=== PATIENT | female | born 1945 | race Caucasian/White ===

== ENCOUNTER → 2017-10-27 | Outpatient (CLI) | payer OTHER ==
[~2017-10-27] MED LIST: ALBU1SYP PO; ALPR0.254 PO; AMIT100T2 PO; BENA5TAB5 PO; DICL1GEL26 TD; DICL1GEL26 TOP; FLUT0.05 NAS; FOLI1TAB6 PO; GABA300C10 PO; HYDR-3682 PO; HYDR-4683 PO; LEUC5TAB PO; MET50T GT; NITR0.2D12 TD; NITR0.4S29 SL; OMEP20CA74 PO; PRE5T GT; RANI-226 PO; SIMV-13 PO; TRIA0.1P11 TOP; TRIA0.25 PO; TRIAPOW6 XX
[2017-10-27 10:31] LABS: Basophils # (auto) 0.1 uL; Basophils % (auto) 0.6 % (0.0-2.0); Eosinophils # (auto) 0.1 uL; Eosinophils % (auto) 0.8 % (0.0-7.0); Hematocrit 36.1 % (36.0-46.0); Hemoglobin 12.4 g/dL (12.2-16.2); Lymphocytes # (auto) 1.6 uL; Lymphocytes % (auto) 20.2 % (10.0-50.0); Mean Corpuscular Hgb Conc. 34.3 g/dL (32.0-36.0); Mean Corpuscular Volume 90.4 fL (80.0-100.0); Monocytes # (auto) 0.4 uL; Monocytes % (auto) 4.6 % (0.0-12.0); Neutrophils # (auto) 5.8 uL; Neutrophils % (auto) 73.8 % (37.0-80.0); Platelet Count (auto) 182 10^3/uL (140-450); Red Cell Distribution Width 17.7 % (11.8-14.3); White Blood Cell 7.9 10^3/uL (4.4-10.8)
[2017-10-27 11:07] LABS: Calcium 8.8 mg/dL (8.5-10.1); Potassium 4.8 mmol/L (3.5-5.1)
[2017-10-27 11:10] LABS: Albumin 3.6 g/dL (3.4-5.0); BUN/Creatinine Ratio 12.2
[2017-10-27 11:13] LABS: Bilirubin, Total 0.3 mg/dL (0.2-1.0); Total Protein 6.8 g/dL (6.4-8.2)
== END | disposition home or self-care (01) ==
LOC: LAB 10:04
PROVIDERS: ATTEND Nurse Practitioner
DX: M06.9 Rheumatoid arthritis, unspecified (principal); I50.9 Heart failure, unspecified
CPT/HCPCS: 36415; 80053; 85025

== ENCOUNTER → 2018-05-16 | Outpatient (CLI) | payer OTHER ==
[2018-05-16 10:03] LABS: Urine Bacteria NONE SEEN /hpf (None Seen); Urine Blood Negative /uL (Negative); Urine Specific Gravity 1.015 (1.001-1.035); Urine WBC 35 /hpf (0 - 5)
[2018-05-16 10:04] LABS: Basophils # (auto) 0.1 uL; Basophils % (auto) 0.7 % (0.0-2.0); Eosinophils # (auto) 0.5 uL; Eosinophils % (auto) 5.6 % (0.0-7.0); Hematocrit 37.4 % (36.0-46.0); Hemoglobin 12.4 g/dL (12.2-16.2); Lymphocytes # (auto) 2.6 uL; Lymphocytes % (auto) 31.2 % (10.0-50.0); Mean Corpuscular Hemoglobin 29.8 pg (28.0-32.0); Mean Corpuscular Hgb Conc. 33.2 g/dL (32.0-36.0); Mean Corpuscular Volume 89.6 fL (80.0-100.0); Monocytes # (auto) 0.6 uL; Monocytes % (auto) 6.8 % (0.0-12.0); Neutrophils # (auto) 4.7 uL; Neutrophils % (auto) 55.7 % (37.0-80.0); Platelet Count (auto) 200 10^3/uL (140-450); Red Blood Cells 4.17 10^6/uL (4.0-5.20); Red Cell Distribution Width 15.9 % (11.8-14.3); White Blood Cell 8.4 10^3/uL (4.4-10.8)
[2018-05-16 10:28] LABS: Calcium 9.2 mg/dL (8.5-10.1); Potassium 4.2 mmol/L (3.5-5.1)
[2018-05-16 10:35] LABS: Albumin 3.4 g/dL (3.4-5.0); BUN/Creatinine Ratio 21.1; Bilirubin, Total 0.3 mg/dL (0.2-1.0); Total Protein 7.6 g/dL (6.4-8.2)
[2018-05-16 14:06] LABS: Free T3 3.21 pg/mL (2.3-4.2); Free T4 (Free Thyroxine) 0.89 ng/dL (0.89-1.76)
[2018-05-16 14:07] LABS: Folate (Folic Acid) 16.22 ng/mL (5.38-24)
== END | disposition home or self-care (01) ==
LOC: LAB 09:10
PROVIDERS: ATTEND Nurse Practitioner
DX: E78.5 Hyperlipidemia, unspecified (principal)
CPT/HCPCS: 36415; 80053; 80061; 81001; 82270; 82306; 82607; 82746; 83036; 84439; 84443; 84481; 84550; 85025; 85652; 86431

== ENCOUNTER 2020-09-23 00:58 | Inpatient (IN) | payer OTHER ==
[~2020-09-23] VITALS: Ht 167.6 cm; Wt 47.3 kg
[~2020-09-23 00:58] MED LIST changes: -ALBU1SYP PO; +ALBU2SYP10 PO; -AMIT100T2 PO; +AMIT1TAB41 PO; -BENA5TAB5 PO; +BENA5TAB9 PO; -HYDR-4683 PO; +HYDR-4833 PO; -NITR0.2D12 TD; +NITR0.2D5 TD; -TRIA0.1P11 TOP; +TRIA0.1P17 TOP
[2020-09-23 02:08] LABS: Basophils # (auto) 0.1 10 ^3/uL (0-0.2); Basophils % (auto) 0.5 % (0.0-2.0); Eosinophils # (auto) 0.1 10 ^3/uL (0-0.8); Eosinophils % (auto) 0.4 % (0.0-7.0); Hematocrit 27.2 % (36.0-46.0); Hemoglobin 9.3 g/dL (12.2-16.2); Lymphocytes % (auto) 7.2 % (10.0-50.0); Mean Corpuscular Hemoglobin 30.4 pg (28.0-32.0); Mean Corpuscular Volume 89.5 fL (80.0-100.0); Monocytes # (auto) 0.8 10 ^3/uL (0-1.3); Monocytes % (auto) 6.2 % (0.0-12.0); Neutrophils # (auto) 11.4 10 ^3/uL (1.6-8.6); Neutrophils % (auto) 85.7 % (37.0-80.0); Red Blood Cells 3.04 10^6/uL (4.0-5.20); White Blood Cell 13.3 10^3/uL (4.4-10.8)
[2020-09-23 02:25] LABS: Albumin 2.7 g/dL (3.4-5.0); BUN/Creatinine Ratio 21.1; Calcium 9.1 mg/dL (8.5-10.1); Potassium 4.3 mmol/L (3.5-5.1)
[2020-09-23 02:29] LABS: Bilirubin, Total 0.4 mg/dL (0.2-1.0); Total Protein 7.3 g/dL (6.4-8.2)
[2020-09-23 02:35] LABS: INR 1.01 (0.9-1.15)
[2020-09-23] MEDS ORDERED: MORPHINE SULFATE 4 MG/ML SYR/VIAL IV ONE (03:00)
[2020-09-23] MEDS ORDERED: ONDANSETRON HCL 4 MG/2 ML VIAL IV ONE (03:00)
[2020-09-23] MEDS ORDERED: ONDANSETRON HCL 4 MG/2 ML VIAL IV PRN (06:15)
[2020-09-23] MEDS ORDERED: MORPHINE SULFATE INJECTION 2 MG/ML SYRG IV PRN (06:15)
[2020-09-23] MEDS ORDERED: ACETAMINOPHEN 325 MG TAB PO PRN (06:15)
[2020-09-23] MEDS ORDERED: NITROGLYCERIN 0.4 MG SL TAB SL PRN (06:15)
[2020-09-23 09:00] VITALS: BP 117/66
[2020-09-23 09:10] VITALS: BP 117/66
[2020-09-23 09:10] LABS: Urine Bacteria MOD /hpf (None Seen); Urine Blood Negative /uL (Negative); Urine Budding Yeast MANY /hpf (None Seen); Urine Specific Gravity 1.014 (1.001-1.035); Urine WBC 54 /hpf (0 - 5)
[2020-09-23] MEDS ORDERED: ASPirin 81 mg TAB PO SCH (10:00)
[2020-09-23] MEDS ORDERED: ENOXAPARIN SOD 40 MG/0.4 ML SYRINGE SC SCH (10:00)
[2020-09-23] MEDS: PANTOPRAZOLE 40 MG TAB PO SCH (10:51)
[2020-09-23] MEDS: AMIODARONE HCL 200 MG TAB PO SCH (11:15)
[2020-09-23] MEDS ORDERED: NITROGLYCERIN 0.4 MG SL TAB SL SCH (11:15)
[2020-09-23] MEDS ORDERED: ALBUTEROL SULF 2 MG/5ML ORAL SYRUP PO PRN (11:15)
[2020-09-23] MEDS ORDERED: TICA90TA PO (11:19)
[2020-09-23] MEDS ORDERED: ATOR20TA50 PO (11:19)
[2020-09-23] MEDS ORDERED: NITR0.4S29 SL (11:19)
[2020-09-23] MEDS ORDERED: APIX5TAB PO (11:19)
[2020-09-23] MEDS ORDERED: SPIR25TA PO (11:20)
[2020-09-23] MEDS ORDERED: ASPI81CH59 PO (11:20)
[2020-09-23] MEDS ORDERED: CAR3125T PO (11:20)
[2020-09-23] MEDS ORDERED: FURO1TAB33 PO (11:20)
[2020-09-23] MEDS ORDERED: ATOR20TA PO (11:20)
[2020-09-23] MEDS: HYDROcodone-ACET 5/325MG TAB PO SCH ×2 (12:49→17:56)
[2020-09-23 13:00] VITALS: BP 83/50
[2020-09-23 17:00] VITALS: BP 96/52
[2020-09-23] MEDS: GABAPENTIN 300 MG CAP PO SCH (21:32)
[2020-09-23] MEDS: TICAGRELOR 90 MG TAB PO SCH (21:32)
[2020-09-23] MEDS: APIXABAN 5 MG TAB PO SCH (21:33)
[2020-09-23 22:00] VITALS: BP 85/45
[2020-09-23] MEDS ORDERED: ATORVASTATIN 20 MG TAB PO SCH (22:00)
[2020-09-24] MEDS: HYDROcodone-ACET 5/325MG TAB PO SCH ×4 (00:06→17:39)
[2020-09-24 05:00] VITALS: BP 117/72
[2020-09-24 05:36] LABS: Basophils # (auto) 0 10 ^3/uL (0-0.2); Basophils % (auto) 0.4 % (0.0-2.0); Eosinophils # (auto) 0.1 10 ^3/uL (0-0.8); Hematocrit 30.3 % (36.0-46.0); Hemoglobin 10.2 g/dL (12.2-16.2); Lymphocytes # (auto) 2.1 10 ^3/uL (0.4-5.4); Lymphocytes % (auto) 17.9 % (10.0-50.0); Mean Corpuscular Hemoglobin 30.5 pg (28.0-32.0); Mean Corpuscular Hgb Conc. 33.8 g/dL (32.0-36.0); Mean Corpuscular Volume 90.2 fL (80.0-100.0); Monocytes # (auto) 0.8 10 ^3/uL (0-1.3); Neutrophils # (auto) 8.5 10 ^3/uL (1.6-8.6); Neutrophils % (auto) 73.7 % (37.0-80.0); Red Blood Cells 3.36 10^6/uL (4.0-5.20); Red Cell Distribution Width 16.3 % (11.8-14.3); White Blood Cell 11.6 10^3/uL (4.4-10.8)
[2020-09-24 05:40] LABS: Albumin 2.9 g/dL (3.4-5.0); BUN/Creatinine Ratio 17.5; Calcium 9.4 mg/dL (8.5-10.1); Potassium 4.3 mmol/L (3.5-5.1)
[2020-09-24 05:42] LABS: Bilirubin, Total 0.4 mg/dL (0.2-1.0); Total Protein 7.7 g/dL (6.4-8.2)
[2020-09-24 09:30] VITALS: BP 105/56
[2020-09-24] MEDS: TICAGRELOR 90 MG TAB PO SCH (10:50)
[2020-09-24] MEDS: AMIODARONE HCL 200 MG TAB PO SCH (10:51)
[2020-09-24] MEDS: APIXABAN 5 MG TAB PO SCH (10:51)
[2020-09-24] MEDS: PANTOPRAZOLE 40 MG TAB PO SCH (10:51)
[2020-09-24] MEDS: GABAPENTIN 300 MG CAP PO SCH (10:51)
[2020-09-24 14:10] VITALS: BP 106/56
[2020-09-24 14:39] VITALS: BP 106/56
[2020-09-24 17:04] VITALS: BP 104/69
== END 2020-09-24 18:10 | disposition hospice, home (50) | DRG 302 ==
LOC: EDBD 00:58 → ER 00:58 → TELE 06:09 → TELE-WESTW 08:45
PROVIDERS: ADMIT Nurse Practitioner; ATTEND Internal Medicine
DX: I25.118 Atherosclerotic heart disease of native coronary artery with other forms of angina pectoris (principal); E43 Unspecified severe protein-calorie malnutrition; I48.20 Chronic atrial fibrillation, unspecified; Z68.1 Body mass index [BMI] 19.9 or less, adult; E87.1 Hypo-osmolality and hyponatremia; I50.22 Chronic systolic (congestive) heart failure; D64.9 Anemia, unspecified; I11.0 Hypertensive heart disease with heart failure; I25.5 Ischemic cardiomyopathy; J44.9 Chronic obstructive pulmonary disease, unspecified; F32.9 Major depressive disorder, single episode, unspecified; F41.9 Anxiety disorder, unspecified; Z20.822 Contact with and (suspected) exposure to COVID-19; I95.9 Hypotension, unspecified; I25.2 Old myocardial infarction; Z91.14 Patient's other noncompliance with medication regimen; Z88.1 Allergy status to other antibiotic agents; Z88.2 Allergy status to sulfonamides; I34.0 Nonrheumatic mitral (valve) insufficiency; Z79.01 Long term (current) use of anticoagulants
CPT/HCPCS: 36415; 71045; 80053; 81001; 83735; 83880; 84484; 85025; 85379; 85610; 87081; 87426; 93005; 93306; 96374; 96375; G0378; J2405

== ENCOUNTER 2020-09-27 21:56 | Emergency (ER) | payer MEDICARE, OTHER ==
[~2020-09-27] VITALS: Ht 152.4 cm; Wt 61.2 kg
[~2020-09-27 21:56] MED LIST changes: -ALBU2SYP10 PO; -ALPR0.254 PO; +AMIT100T2 PO; -AMIT1TAB41 PO; +APIX5TAB PO; +ASPI81CH59 PO; +ATOR20TA PO; +ATOR20TA50 PO; +BENA5TAB5 PO; -BENA5TAB9 PO; +CAR3125T PO; -DICL1GEL26 TOP; +FURO1TAB33 PO; -HYDR-3682 PO; -LEUC5TAB PO; -MET50T GT; -NITR0.2D5 TD; -OMEP20CA74 PO; -PRE5T GT; -RANI-226 PO; -SIMV-13 PO; +SPIR25TA PO; +TICA90TA PO; -TRIA0.1P17 TOP; -TRIA0.25 PO; -TRIAPOW6 XX
[2020-09-28 01:13] LABS: Basophils # (auto) 0 10 ^3/uL (0-0.2); Eosinophils # (auto) 0 10 ^3/uL (0-0.8); Eosinophils % (auto) 0.2 % (0.0-7.0); Hematocrit 30.8 % (36.0-46.0); Hemoglobin 10.5 g/dL (12.2-16.2); Lymphocytes # (auto) 1.4 10 ^3/uL (0.4-5.4)
[2020-09-28 01:15] LABS: Basophils % (auto) 0.3 % (0.0-2.0); Lymphocytes % (auto) 8.6 % (10.0-50.0); Mean Corpuscular Hemoglobin 30.3 pg (28.0-32.0); Mean Corpuscular Hgb Conc. 34.2 g/dL (32.0-36.0); Mean Corpuscular Volume 88.5 fL (80.0-100.0); Monocytes % (auto) 6.3 % (0.0-12.0); Neutrophils # (auto) 13.4 10 ^3/uL (1.6-8.6); Neutrophils % (auto) 84.6 % (37.0-80.0); Red Blood Cells 3.48 10^6/uL (4.0-5.20); Red Cell Distribution Width 15.6 % (11.8-14.3); White Blood Cell 15.8 10^3/uL (4.4-10.8)
[2020-09-28 01:22] LABS: Albumin 2.5 g/dL (3.4-5.0); BUN/Creatinine Ratio 26.2; Calcium 8.8 mg/dL (8.5-10.1); Potassium 4.5 mmol/L (3.5-5.1)
[2020-09-28 01:30] LABS: Bilirubin, Total 0.5 mg/dL (0.2-1.0); Total Protein 6.7 g/dL (6.4-8.2)
[2020-09-28] MEDS ORDERED: HYDROcodone-ACET 5/325MG TAB PO ONE (02:15)
[2020-09-28] MEDS ORDERED: IOHEXOL 300 MG/ML 100ML BOTTLE IJ ONE (03:52)
[2020-09-28 07:00] VITALS: BP 94/49
== END 2020-09-28 07:24 | disposition home or self-care (01) ==
LOC: EDBD 21:56 → ER 22:21
DX: K63.5 Polyp of colon (principal); E87.1 Hypo-osmolality and hyponatremia; I11.0 Hypertensive heart disease with heart failure; I50.9 Heart failure, unspecified; J44.9 Chronic obstructive pulmonary disease, unspecified; E78.5 Hyperlipidemia, unspecified; Z88.1 Allergy status to other antibiotic agents; Z88.2 Allergy status to sulfonamides
CPT/HCPCS: 36415; 74177; 80053; 85025; 93005; 99285; Q9967